=== PATIENT | female | born 1970 | race Caucasian/White ===

== ENCOUNTER 2023-12-08 23:51 | Emergency (ER) | payer OTHER ==
[2023-12-08 23:57] VITALS: BP 121/81; PULSE 115; RESP 18; TEMP 98.2; BMI 26.5
[2023-12-09 01:12] LABS: HEMATOCRIT 40.8 % (32.4-45.2); HEMOGLOBIN 13.5 GM/dL (10.7-15.3); MCH 26.9 pg (25.7-33.7); MCHC 33.1 g/dl (32.0-36.0); MEAN CELL VOLUME 81.3 fl (80-96); MEAN PLT VOLUME 9.1 fl (7.5-11.1); PLATELET COUNT 297 10^3/uL (134-434); RBC 5.01 M/mm3 (3.60-5.2); RDW 13.3 % (11.6-15.6); WHITE BLOOD COUNT 23.9 K/mm3 (4.0-10.0)
[2023-12-09] MEDS ORDERED: ONDANSETRON 4 MG/2 ML VIAL ONE (01:28)
[2023-12-09] MEDS: ONDANSETRON 4 MG/2 ML VIAL IVPUSH ONE (01:33)
[2023-12-09] MEDS ORDERED: ACETAMINOPHEN INJECTION 100 ML ONE (01:36)
[2023-12-09 01:37] LABS: POTASSIUM 4.3 mmol/L (3.5-5.1)
[2023-12-09 01:41] LABS: CALCIUM 9.9 mg/dL (8.5-10.1)
[2023-12-09 01:42] LABS: ALBUMIN 4.2 g/dl (3.4-5.0); BLOOD UREA NITROGEN 14.6 mg/dL (7-18); MAGNESIUM 1.5 mg/dL (1.8-2.4)
[2023-12-09] MEDS: SODIUM CHLORIDE 1,000 ML IV STA (01:42)
[2023-12-09] MEDS: ACETAMINOPHEN 1000 MG/100 ML BAG IVPB ONE (01:42)
[2023-12-09 01:45] LABS: CREATININE 0.6 mg/dL (0.55-1.3)
[2023-12-09 01:47] LABS: BILIRUBIN,TOTAL 0.6 mg/dL (0.2-1); TOT PROT 7.9 g/dl (6.4-8.2)
[2023-12-09] MEDS ORDERED: FAMOTIDINE 20 MG/50 ML IVPB 20 MG/50 ML MG IVPB ONE (02:00)
[2023-12-09] MEDS ORDERED: MAG HYDROX/AL HYDROX/SIMETH 30 ML UNIT-DOSE CUP ONE (02:02)
[2023-12-09] MEDS: FAMOTIDINE 20 MG/50 ML IVPB 20 MG/50 ML MG IVPB ONE (02:04)
[2023-12-09] MEDS: MAG HYDROX/AL HYDROX/SIMETH 30 ML UNIT-DOSE CUP PO ONE (02:04)
[2023-12-09 04:07] LABS: ANISOCYTOSIS 2+; MACROCYTOSIS 0
== END 2023-12-09 04:19 | disposition home or self-care (01) ==
LOC: JER 23:51 → EDBD 23:51 → JER 12-09 04:19
PROC: 3E033GC Introduction of Other Therapeutic Substance into Peripheral Vein, Percutaneous Approach (ICD-10-PCS; principal; 2023-12-09)
PROC: 3E033NZ Introduction of Analgesics, Hypnotics, Sedatives into Peripheral Vein, Percutaneous Approach (ICD-10-PCS; 2023-12-09)
PROC: 3E033GC Introduction of Other Therapeutic Substance into Peripheral Vein, Percutaneous Approach (ICD-10-PCS; 2023-12-09)
DX: A08.4 Viral intestinal infection, unspecified (principal); R11.2 Nausea with vomiting, unspecified; R10.13 Epigastric pain; R10.11 Right upper quadrant pain
CPT/HCPCS: 36415; 76705-TC; 80053; 83735; 85025; 93005; 93010; 99285-25; J0131